=== PATIENT | female | born 1960 | race Caucasian/White ===

== ENCOUNTER 2019-10-07 13:22 | Emergency (ER) | payer OTHER, SELFPAY ==
--- NOTE | 2019-10-07 13:34 | ED.GENADULT ---
HPI - General Adult General Chief complaint: Skin/Abscess/Foreign Body Stated complaint: rash on neck Source: patient and RN notes reviewed Mode of arrival: ambulatory Limitations: no limitations History of Present Illness HPI narrative: This is a 59 years old female presents to the office for an evaluation of itchy lesion on her neck since yesterday. Possible insect bite; however she did not see it. She has try cortisone [id number] with no relief. She did not try to call her doctor for this condition. Denies sick contact or feeling ill. Related Data Home Medications Medication Instructions Recorded Confirmed simvastatin mg 10/07/19 Allergies Allergy/AdvReac Type Severity Reaction Status Date / Time No Known Allergies Allergy Mild Verified 07/04/10 18:51 Review of Systems Review of Systems: Narrative: CONSTITUTIONAL: Denies fever or feeling ill ENT: Denies congestion CARDIOVASCULAR: Denies chest pain RESPIRATORY: Denies cough GASTROINTESTINAL: Denies abdominal pain, nausea, vomiting SKIN: Reports itchy rash/lesion on her left side of her neck/jaw line MUSCULOSKELETAL: Denies acute back pain NEUROLOGIC: Denies lightheaded PMFSH Past Medical History Medical History (Updated 10/07/19 @ 13:49 by RUBI Schwartz) HLD (hyperlipidemia) Social History Social History (Updated 10/07/19 @ 13:55 by RUBI Schwartz) Smoking status: Never smoker Comments At time of signature, I agree with nursing past medical, surgical, social and family history. There is no relevant family history pertinent to the presenting complaint. Exam Narrative: Exam Narrative: GENERAL: This is a well-nourished, well-developed patient, in no apparent distress. THROAT: Mucous membranes moist, posterior pharynx clear. NECK: Neck supple, non-tender without lymphadenopathy, masses or thyromegaly. Left jaw line noted erythema nodule with excoriation scratch cleaning. No Lymphandenitis. CARDIOVASCULAR: Regular rate and rhythm without murmurs, gallops, or rubs. RESPIRATORY: Clear to auscultation. Breath sounds equal bilaterally. No wheezes, rales, or rhonchi. GASTROINTESTINAL: Abdomen soft, non-tender, nondistended. Bowel sounds are active. No hepato-splenomegaly, or palpable masses. No guarding. NEURO: awake, alert, and oriented to person, place and time. There were no obvious focal neurologic abnormalities. Steady gait Davis Coma Scale Eye Opening: Spontaneous 4 Megan Coma Scale Motor: Obeys Commands 6 Davis Coma Scale Verbal: Oriented 5 Course Vital Signs Vital signs: Vital Signs Temperature 98.4 F 10/07/19 13:35 Pulse Rate 84 10/07/19 13:35 Respiratory Rate 16 10/07/19 13:35 Blood Pressure 137/85 10/07/19 13:35 Pulse Oximetry 100 10/07/19 13:35 Temperature 98.4 F 10/07/19 13:35 Pulse Rate 84 10/07/19 13:35 Respiratory Rate 16 10/07/19 13:35 Blood Pressure 137/85 10/07/19 13:35 Pulse Oximetry 100 10/07/19 13:35 Medical Decision Making MDM Narrative Medical decision making narrative: Discharge instructions reviewed with patient, as well as provided in writing per nursing staff. The instructions also include specific and strict return/GO TO THE ER as well as f/u information. All questions have been answered, and the patient deny any further questions with discharge and discharge plan. Differential Diagnosis Differential Diagnosis: Contact/allergic dermatitis, atopic dermatitis, psoriasis, eczema, tinea, erythema multiforme Vital Signs Vital Signs: Vital Signs Temperature 98.4 F 10/07/19 13:35 Pulse Rate 84 10/07/19 13:35 Respiratory Rate 16 10/07/19 13:35 Blood Pressure 137/85 10/07/19 13:35 Pulse Oximetry 100 10/07/19 13:35 Temperature 98.4 F 10/07/19 13:35 Pulse Rate 84 10/07/19 13:35 Respiratory Rate 16 10/07/19 13:35 Blood Pressure 137/85 10/07/19 13:35 Pulse Oximetry 100 10/07/19 13:35 Critical Care Time Critic
[2019-10-07 13:35] VITALS: BP 137/85; PULSE 84; RESP 16; TEMP 36.9; O2SAT 100
== END 2019-10-07 13:56 | disposition home or self-care (01) ==
PROVIDERS: Emergency Provider Nurse Practitioner; PCP Internal Medicine
DX: S10.96XA Insect bite of unspecified part of neck, initial encounter (principal); W57.XXXA Bitten or stung by nonvenomous insect and other nonvenomous arthropods, initial encounter; E78.5 Hyperlipidemia, unspecified
CPT/HCPCS: 99213; G0463

== ENCOUNTER 2019-12-13 09:24 | Emergency (ER) | payer OTHER, SELFPAY ==
[2019-12-13 09:26] VITALS: BP 159/76; PULSE 99; RESP 18; TEMP 36.6; O2SAT 100
[2019-12-13] MEDS: TETANUS,DIPHTHERIA,AC PERTUSSIS ADULT (0.5 ML) BOOSTRIX IM (09:54)
--- NOTE | 2019-12-13 10:16 | ED.HEATRA ---
HPI - Head Injury General Chief complaint: Head Injury Stated complaint: HI Time Seen by Provider: 12/13/19 09:39 History of Present Illness HPI Narrative: Patient is a 59-year-old female who presents the ER with a head injury. She was cleaning at her sister's house when a vase fell and struck the top of her head. It split open the skin. She did not lose consciousness. She has no change in vision or hearing. No extremity numbness or tingling. She takes aspirin. No other concerns. Unknown last tetanus immunization. Related Data Home Medications Medication Instructions Recorded Confirmed simvastatin mg 10/07/19 Allergies Allergy/AdvReac Type Severity Reaction Status Date / Time No Known Allergies Allergy Mild Verified 12/13/19 09:25 Review of Systems Eyes: Eyes: Denies change in vision and Denies photophobia Neurologic: Denies dizziness, Denies syncope, Denies headache(s), Denies focal weakness and Denies numbness PMFSH Past Medical History Medical History (Updated 12/13/19 @ 10:19 by Lee Hernandez MD) HLD (hyperlipidemia) Surgical History Surgical History (Updated 12/13/19 @ 10:17 by Lee Hernandez MD) No pertinent past surgical history Social History Social History (Updated 10/07/19 @ 13:55 by RUBI Schwartz) Smoking status: Never smoker Gender identity (if verbalized by the patient): Female Exam Narrative: Exam Narrative: GENERAL: Well-appearing, well-nourished, and in no acute distress. HEAD: Normocephalic, 2 cm superficial laceration left parietal region. ENT: Mucous membranes moist. EXTREMITIES: Normal range of motion. No edema. NEURO: Alert and oriented x3. PSYCH: Normal mood and affect. Course Course Emergency Course: Tetanus updated. Wound repaired. Discharge home. Vital Signs Vital signs: Vital Signs Temperature 97.8 F 12/13/19 09:26 Pulse Rate 99 12/13/19 09:26 Respiratory Rate 18 12/13/19 09:26 Blood Pressure 159/76 H 12/13/19 09:26 Pulse Oximetry 100 12/13/19 09:26 Temperature 97.8 F 12/13/19 09:26 Pulse Rate 99 12/13/19 09:26 Respiratory Rate 18 12/13/19 09:26 Blood Pressure 159/76 H 12/13/19 09:26 Pulse Oximetry 100 12/13/19 09:26 Procedures Laceration Laceration 1: Date: 12/13/19 Time: 10:00 Site: scalp Size (cm): 2 Description: linear Depth: simple, single layer Local Anesthetic: none Pre-repair: irrigated ====== Skin Level ====== Skin layer closed with: sanna Number of sutures: 2 ====== Subcutaneous Layer ====== ====== Muscle Layer ====== ====== Tendon Layer ====== Discharge Plan Discharge Clinical Impression: Laceration of scalp Patient Disposition: Home, Self-Care Condition: Stable Instructions: Staple Care (ED) Additional Instructions: Return the ER if this is draining from your wound, you lose consciousness, you have additional concerns. You will need your sanna removed in 7 days. You can do this at home or return to the ER with your staple remover. Prescriptions: No Action simvastatin 40 mg tablet RF: 0 Follow-up/Referrals: Comfort,Jefry León MD [Primary Care Provider] - 1 Week
== END 2019-12-13 10:47 | disposition home or self-care (01) ==
PROVIDERS: Emergency Provider Emergency Medicine; PCP Internal Medicine
DX: S01.01XA Laceration without foreign body of scalp, initial encounter (principal); E78.5 Hyperlipidemia, unspecified; W20.8XXA Other cause of strike by thrown, projected or falling object, initial encounter; Z23 Encounter for immunization
CPT/HCPCS: 12001; 90471; 90715; 99283

== ENCOUNTER 2019-12-20 11:34 | Emergency (ER) | payer OTHER, SELFPAY ==
[2019-12-20 11:39] VITALS: BP 134/87; PULSE 91; RESP 18; TEMP 36.9; O2SAT 99
--- NOTE | 2019-12-20 12:09 | ED.GENADULT ---
HPI - General Adult General Chief complaint: Wound/Laceration <Liang Pandey PA-C - Last Filed: 12/20/19 12:14> Stated complaint: Geremias Removed <Liang Pandey PA-C - Last Filed: 12/20/19 12:14> Time Seen by Provider: 12/20/19 11:39 <Liang Pandey PA-C - Last Filed: 12/20/19 12:14> Source: patient <Liang Pandey PA-C - Last Filed: 12/20/19 12:14> Mode of arrival: ambulatory <Liang Pandey PA-C - Last Filed: 12/20/19 12:14> Limitations: no limitations <Liang Pandey PA-C - Last Filed: 12/20/19 12:14> History of Present Illness HPI narrative: Patient is a 59-year-old female who presents to emergency department for evaluation of needing geremias removed from the scalp that were placed 7 days ago patient denies any pain or complaints presents in no distress <Liang Pandey PA-C - Last Filed: 12/20/19 12:14> Related Data Home medications: Home Medications Medication Instructions Recorded Confirmed simvastatin mg 10/07/19 <Liang Pandey PA-C - Last Filed: 12/20/19 12:14> Allergies/adverse reactions: Allergies Allergy/AdvReac Type Severity Reaction Status Date / Time No Known Allergies Allergy Mild Verified 12/20/19 11:42 <Liang Pandey PA-C - Last Filed: 12/20/19 12:14> Review of Systems Review of Systems: All systems reviewed & are unremarkable except as noted in HPI and below <Liang Pandey PA-C - Last Filed: 12/20/19 12:14> [facility] Past Medical History Medical History: Medical History HLD (hyperlipidemia) <Liang Pandey PA-C - Last Filed: 12/20/19 12:14> Surgical History Surgical History: Surgical History No pertinent past surgical history <TIMMY Gonzalez Last Filed: 12/20/19 12:14> Social History Social History: Social History Smoking status: Never smoker Gender identity (if verbalized by the patient): Female <Liang Pandey PA-C - Last Filed: 12/20/19 12:14> Exam Narrative: Exam Narrative: GENERAL: Well-appearing, well-nourished, and in no acute distress. HEAD: Normocephalic, atraumatic. Scalp is well approximated no erythema [address] EYES: PERRLA and EOMI. ENT: Nares clear, no rhinorrhea or epistaxis. Mucous membranes moist. Oropharynx without tonsillar hypertrophy exudate or other lesions. EXTREMITIES: Normal range of motion. No edema. SKIN: Warm, dry, no rash. NEURO: No focal deficits. Alert and oriented x3. PSYCH: Normal mood and affect. <Linag Pandey PA-C - Last Filed: 12/20/19 12:14> Course Course Emergency Course: Patient in the room in no distress aware of case findings treatment plan diagnosis <Liang Pandey PA-C - Last Filed: 12/20/19 12:14> Vital Signs Vital signs: Vital Signs Temperature 98.5 F 12/20/19 11:39 Pulse Rate 91 12/20/19 11:39 Respiratory Rate 18 12/20/19 11:39 Blood Pressure 134/87 12/20/19 11:39 Pulse Oximetry 99 12/20/19 11:39 Temperature 98.5 F 12/20/19 11:39 Pulse Rate 91 12/20/19 11:39 Respiratory Rate 18 12/20/19 11:39 Blood Pressure 134/87 12/20/19 11:39 Pulse Oximetry 99 12/20/19 11:39 <Liang Pandey PA-C - Last Filed: 12/20/19 12:14> Vital Signs Temperature 98.5 F 12/20/19 11:39 Pulse Rate 91 12/20/19 11:39 Respiratory Rate 18 12/20/19 11:39 Blood Pressure 134/87 12/20/19 11:39 Pulse Oximetry 99 12/20/19 11:39 Temperature 98.5 F 12/20/19 11:39 Pulse Rate 91 12/20/19 11:39 Respiratory Rate 18 12/20/19 11:39 Blood Pressure 134/87 06/13/20 11:39 Pulse Oximetry 99 12/20/19 11:39 <Polina Coleman MD - Last Filed: 12/20/19 18:33> Procedures Other Procedure Procedure 1: Other Procedure: 2 geremias removed using staple
== END 2019-12-20 12:21 | disposition home or self-care (01) ==
PROVIDERS: Emergency Provider General Practice; PCP Internal Medicine
DX: S01.00XD Unspecified open wound of scalp, subsequent encounter (principal); E78.5 Hyperlipidemia, unspecified; X58.XXXD Exposure to other specified factors, subsequent encounter
CPT/HCPCS: 99281

== ENCOUNTER 2020-12-06 10:04 | Emergency (ER) | payer OTHER, SELFPAY ==
[2020-12-06 10:11] VITALS: BP 144/86; PULSE 96; RESP 16; TEMP 36.3; O2SAT 100
[2020-12-06 10:14] VITALS: BP 144/86; PULSE 96; RESP 16; TEMP 36.3; O2SAT 100
--- NOTE | 2020-12-06 10:31 | ED.FEMALEGU ---
HPI - Female Genitourinary General Chief complaint: Urogenital-Female Stated complaint: Yeast Infection Source: patient and RN notes reviewed Limitations: no limitations History of Present Illness HPI Narrative: The patient- previously mostly healthy- presents with shorter, couple day history of urinary frequency associated with itching. No fever, dysuria, hematuria, low back pain, N/V , abdominal pain, discharge. Symptoms are mild, unimproved with OTC female preps, and most noticeable at night with associated nocturia. She declines pelvic exam Related Data Home Medications Medication Instructions Recorded Confirmed simvastatin 40 mg PO DAILY 10/07/19 12/06/20 omeprazole 20 mg PO DAILY 12/06/20 12/06/20 Allergies Allergy/AdvReac Type Severity Reaction Status Date / Time No Known Allergies Allergy Mild Verified 12/06/20 10:18 Review of Systems Review of Systems: Narrative: The patient has been informed that they may have pre-hypertension or Hypertension based on a BP reading in the department. I recommend that the patient call the primary care provider listed on their discharge instructions or a physician of their choice this week to arrange follow up for further evaluation of possible pre-hypertension or Hypertension General/Constitutional: No weight loss,fever Eyes: N0: Redness,discharge Ears/Nose/Throat: No: Epistaxis,ear discharge Respiratory: Denies: Hemoptysis Gastrointestinal: No Vomiting, Bleeding-rectal Skin: No Lumps, eruption Neurologic: No Focal Weakness,Sz Hematologic: Denies: Petechiae/Purpura Psychiatric: No: Suicida ideationl All Other Systems: Reviewed and Negative [facility] Past Medical History Medical History (Updated 12/06/20 @ 10:33 by Mark Atkinson MD) HLD (hyperlipidemia) Surgical History Surgical History No pertinent past surgical history Social History Social History Smoking status: Never smoker Gender identity (if verbalized by the patient): Female Comments At time of signature, agree with nursing past medical, surgical, social and family history. There is no relevant family history pertinent to the presenting complaint Exam Narrative: Exam Narrative: General Appearance: Well appearing, No distress EYE: PERRLA, Conjunctiva clear Ears: External ear normal Nose: Normal nose Mouth/Throat: Normal appearing, Normal lips Neck: Supple Respiratory: Airway patent, No respiratory distress Abdomen: Soft, Non-tender, Musculoskeletal: Full ROM Skin: Warm, Dry Neurological: A&O x3, CN II-X intact Psychiatric: Normal mood, Normal affect Course Vital Signs Vital signs: Vital Signs Temperature 97.4 F L 12/06/20 10:11 Pulse Rate 96 12/06/20 10:11 Respiratory Rate 16 12/06/20 10:11 Blood Pressure 144/86 H 12/06/20 10:11 Pulse Oximetry 100 12/06/20 10:11 Temperature 97.4 F L 12/06/20 10:14 Pulse Rate 96 12/06/20 10:14 Respiratory Rate 16 12/06/20 10:14 Blood Pressure 144/86 H 12/06/20 10:14 Pulse Oximetry 100 12/06/20 10:14 MDM - Female Genitourinary Lab Data Labs: Urine Glucose Negative Reference Range: Negative Urine Bilirubin Negative Reference Range: Negative Urine Ketone Negative Reference Range: Negative Urine Specific [place] 1.020 Reference Range:1.001-1.035 Urine Blood Trace Reference Range: Negative * * Urine pH 6.0 Reference Range: 5.0-9.0
== END 2020-12-06 10:39 | disposition home or self-care (01) ==
PROVIDERS: Emergency Provider Emergency Medicine; PCP Internal Medicine
DX: N76.0 Acute vaginitis (principal); E78.5 Hyperlipidemia, unspecified
CPT/HCPCS: 81003; 99213; G0463

== ENCOUNTER 2023-04-23 18:45 | Emergency (ER) | payer OTHER, SELFPAY ==
[2023-04-23 18:55] VITALS: BP 129/70; PULSE 85; RESP 16; TEMP 37.4; O2SAT 99
--- NOTE | 2023-04-23 19:17 | ED.SKABFB ---
HPI - Skin/Abscess/Foreign Bdy General Chief complaint: Skin/Abscess/Foreign Body Stated complaint: rash on left side Source: patient Mode of arrival: ambulatory Limitations: no limitations History of Present Illness HPI narrative: 63-year-old female presents to [facility] with complaints to rash to left-sided buttocks moving up to left-side of abdomen which patient just noticed prior to arrival. Patient reports that she recently returned home from a trip. Patient denies pain to the area of rash. Patient reports that she did try applying [id number] cortisone cream 1 time with no relief. Patient denies shortness of breath, wheezing, trouble swallowing difficulty breathing MD complaint: rash Onset (ago): hour(s) (1) Location: buttocks ( Left-sided) Relieving factors: none Exacerbating factors: none Context: none Associated symptoms: denies other symptoms Treatments prior to arrival: none Related Data Home Medications Medication Instructions Recorded Confirmed simvastatin 40 mg tablet 40 mg PO DAILY 10/07/19 12/06/20 omeprazole 20 mg capsule,delayed 20 mg PO DAILY 12/06/20 12/06/20 release montelukast 10 mg tablet mg 04/23/23 Allergies Allergy/AdvReac Type Severity Reaction Status Date / Time No Known Allergies Allergy Mild Verified 04/23/23 18:53 Review of Systems Constitutional: Constitutional: Denies chills, Denies fatigue, Denies fever(s) and Denies weakness ENT: Denies dizziness, Denies epistaxis and Denies nasal congestion Cardiovascular: Cardiovascular: Denies chest pain Respiratory: Respiratory: Denies cough, Denies dyspnea and Denies wheezing Gastrointestinal: Gastrointestinal: Denies diarrhea, Denies nausea and Denies vomiting Musculoskeletal: Musculoskeletal: Denies arthralgias and Denies joint swelling Integumentary/Breasts: Skin/Breast: Denies pruritus, Denies erythema, Reports rash and Denies skin ulcer Neurologic: Denies dizziness, Denies syncope and Denies headache(s) [facility] Past Medical History Medical History (Updated 04/23/23 @ 19:22 by Matilda Monae APRN) HLD (hyperlipidemia) Surgical History Surgical History No pertinent past surgical history Social History Social History Smoking status: Never smoker Gender identity (if verbalized by the patient): Female Comments At time of signature, I agree with nursing past medical, surgical, social and family history. There is no relevant family history pertinent to the presenting complaint. Exam Const: General: healthy appearing and no acute distress Nutritional Appearance: well nourished Orientation/consciousness: patient oriented x3 Limitations: no limitations Neck: Neck: normal visual inspection Resp: Effort & Inspection: normal respiratory effort and not labored Auscultation: clear to auscultation bilaterally, no crackles, no rales and no rhonchi Cardio: Rate: regular rate Skin: General skin exam: normal color Wounds: no wounds Other: linear erythematous rash noted to left side of buttocks and left abdominal wall representing contact dermatitis. There is no vesicles noted. There is no surrounding erythema, streaking erythema or signs infection noted. Neuro: General: patient oriented x3 Speech: normal speech Psych: Affect: normal affect Attitude: cooperative Course Course Level of Care: Express Care Visit Vital Signs Vital signs: Vital Signs Temperature 37.4 C 04/23/23 18:55 Pulse Rate 85 04/23/23 18:55 Respiratory Rate 16 04/23/23 18:55 Blood Pressure 129/70 04/23/23 18:55 Pulse Oximetry 99 04/23/23 18:55 Oxygen Delivery Room Air 04/23/23 18:55 Temperature 37.4 C 04/23/23 18:55 Pulse Rate 85 04/23/23 18:55 Respiratory Rate 16 04/23/23 18:55 Blood Pressure 129/70 04/23/23 18:55 Pulse Oximetry 99 04/23/23 18:55 Oxygen Delivery Ro
== END 2023-04-23 19:34 | disposition home or self-care (01) ==
PROVIDERS: Emergency Provider Nurse Practitioner Family; PCP Internal Medicine
DX: L25.9 Unspecified contact dermatitis, unspecified cause (principal); E78.5 Hyperlipidemia, unspecified
CPT/HCPCS: 99213; G0463

== ENCOUNTER 2023-06-25 07:07 | Outpatient (CLI) | payer OTHER, SELFPAY ==
--- NOTE | ~2023-06-25 | MM_ITS ---
EXAMINATION: MM screening molly BI w bassam HISTORY: Screening mammogram TECHNIQUE: Craniocaudal and mediolateral oblique 3-D tomosynthesis images were obtained and synthetic 2-D images were generated. CAD analysis was submitted and interpreted. COMPARISON: 05/17/2016 bilateral screening mammogram BREAST PARENCHYMAL COMPOSITION: The breasts are extremely dense, which lowers the sensitivity of mamm ography. FINDINGS: There is no evidence of suspicious mass, calcification, or architectural distortion to sugg est malignancy in either breast. There has been no suspicious interval change. IMPRESSION: 1. No mammographic evidence of malignancy. 2. Recommend routine screening mammography in one year. BI-RADS Category 1: Negative Reviewed, dictated and finalized at location A. T [employer]PERINTENDENT
== END 2023-06-25 07:08 | disposition home or self-care (01) ==
LOC: ANHIMG 07:08
PROVIDERS: PCP Internal Medicine; Visit Provider Internal Medicine
DX: Z12.31 Encounter for screening mammogram for malignant neoplasm of breast (principal)
CPT/HCPCS: 77063; 77067

== ENCOUNTER 2024-08-05 15:03 | Outpatient (CLI) | payer OTHER, SELFPAY ==
--- NOTE | ~2024-08-05 | MM_ITS ---
EXAMINATION: MM screening molly BI w bassam HISTORY: Screening TECHNIQUE: Craniocaudal and mediolateral oblique 3-D tomosynthesis images were obtained and synthetic 2-D images were generated. CAD analysis was submitted and interpreted. COMPARISON: Comparison to multiple prior studies sequentially, with oldest reviewed study dated 03/2016. BREAST PARENCHYMAL COMPOSITION: Dense: The breasts are extremely dense, which lowers the sensitivity of mammography. FINDINGS: There is no evidence of suspicious mass, calcification, or architectural distortion to sugg est malignancy in either breast. There has been no suspicious interval change. IMPRESSION: 1. No mammographic evidence of malignancy. 2. Recommend routine screening mammography in one year. BI-RADS Category 1: Negative Reviewed, dictated and finalized at location A. ONAL [employer] ANALYST
--- OUTSIDE RECORDS SUMMARY | 2024-08-05 15:34 | XMS_ITS | Clinical Summary ---
Author Organization [facility] Address [address] [place] [address]. [place], [place] [id number] [place] [id number] Care Team Providers Care Grappler Name Role Phone Unavailable Primary Care Provider Unavailabl e Social History Tobacco Use Types Packs/Day Years Used Date Smoking Tobacco: Never Assessed Comments Unknown Sex and Gender Information Value Date Recorded Sex Assigned at Not on file Legal Sex Female 5:28 PM CDT Gender Identity Not on file Sexual Orientation Not on file Plan of Treatment Health Maintenance Due Date Last Done Comments Cervical Cancer Screening Pa p Smear (Age 30 to 64) Every 3 Years 1961 Colorectal Cancer Screening Colonoscopy (10 Years) 1961 Annual Physical 1964 Hepatitis C 1979 DTaP, Tdap and Td Vaccines ( 1 - Tdap) 1980 Cervical Cancer Screening Pa p with HPV Testing (Age 30 to 64) Every 5 Years 1991 Cervical Cancer Screening with HPV 1991 Mammogram Screening 2001 Zoster Vaccines (1 of 2) 2011 COVID-19 Vaccine (2023-2 5 season) 2024 Influenza Adult (#1) 2024 RSV Immunization or 60+ Years (1 - 1-dose 75+ series) 2036 Meningococcal B Vaccine Aged Out No l onger eligible based on patient's age to complete this topic Meningococcal Vaccine Aged Out No melissa ginger eligible based on patient's age to complete this topic Pneumococcal Vaccine: Pediat rics (0 to 5 Years) and At-Risk Patients (6 to 64 Years) Aged Out No longer eligible b ased on patient's age to complete this topic RSV Immunizations Under 20 Months Aged Out No longer eligible based on patient's age to complete this topic
--- OUTSIDE RECORDS SUMMARY | 2024-08-05 15:34 | XMS_ITS | Data Portability ---
Author Organization [facility] [place] [facility] Address [address], [place] [address] Care Team Providers Care Valet Name Role Phone CARLEEN CLARK Primary Care Provider [phone] Assessment Encounter Date Assessment Date Assessment LastModified by Organization Details LastModified Time 11/01/2023 11/01/2023 Hyperlipidemia simvastatin check blood work GERD kszl-ykt-lvturuh omeprazole try to de-escalate to Pepcid and see if that controls her symptoms headaches have been stable rhinitis has been doing fine she uses Jaylin over the counter if needed she is agreeable to a Cologuard she is not agreeable to Pap smear she refuses HIV screening follow-up in 6 months [email or web address] Not available 11/01/2023 22:37:53 05/08/2024 05/08/2024 hyperlipidemia simvastatin. Osteoarthritis meloxicam. Sinusitis Z-Matt and fluids. Healthy lifestyle care instructions. Mammogram. CBC CMP lipid for biochemical management of disease processes and medications. Follow up in 6 months [email or web address] Not available 05/12/2024 08:23:41 Plan of Treatment Reminders Order Date Submit Date Provider Last Modified By Organization Details Last Modified Time Details Appointments ANY 15 2024 09:00A Arturo Clark MD Not available Not available Not available Lab lipid panel, serum 2022 023 [facility], [address], [address], [place], [address], 01/23/2023 17:44:43 CMP, serum or plasma 2022 023 [facility], [address], [address], [place], [address], 01/23/2023 17:44:44 noninvasi ve colorecta l cancer DNA + occult blood screening , QL, stool 2023 024 [facility] (Cologuard Orders Only), [address], [place], [address], 11/23/2023 04:23:48 lipid panel, serum 2023 024 [facility], [address], [address], [place], [address], 11/15/2023 13:01:58 CMP, serum or plasma 2023 024 [facility], [address], [address], [place], [address], 11/15/2023 13:01:58 CBC w/ auto diff 2023 024 [facility], [address], [address], [place], [address], 11/15/2023 13:01:58 CBC w/ auto diff 2023 024 [facility], [address], [address], [place], [address], 05/27/2024 09:26:56 CMP, serum or plasma 2023 024 [email or web address], [address], [address], [place], [address], 06/13/2024 11:20:13 lipid panel, serum 2023 024 [facility], [address], [place], [address], 05/27/2024 09:26:56 Referral None recorded. Procedures None recorded. Surgeries None recorded. Imaging MAMMO, screening , digital, bilateral 2023 024 [facility] (Imaging), [address], [place], [address], 08/05/2024 04:23:16 Medication Orders fluconazo le 150 mg tablet 2022 023 [email or web address] [address], [place], [address], 11/01/2023 14:40:[address] 10 mg tablet 2022 023 [email or web address] [address], [place], [address], 11/01/2023 14:53:27 Jaylin Allergy 180 mg tablet 2022 023 [email or web address] [address], [place], [address], 11/01/2023 14:53:29 triamcino lone acetonide 0.1 % topical ointment 2022 023 [email or web address] [address], [place], [address], 11/01/2023 14:40:27 Zithromax Z-Matt 250 mg tablet 2023 024 [email or web address] [address], [place], [address], 11/01/2023 14:40:03 benzonata te 200 mg capsule 2023 024 [email or web address] [address], [place], [address], 11/01/2023 14:40:04 clobetaso l 0.05 % topical cream 2023 024 [email or web address] [address] In [facility], [address], [place], [address], 11/01/2023 14:53:31 Zithromax Z-Matt 250 mg tablet 2023 024 [email or web address] [address] In [facility], [address], [place], [address], 05/08/2024 15:27:26 Patient TargetsNo targets recorded. Patient Instructions Encounter Date Encounter Id Patient Instructions Last Modified By Organization Details Last Modified Time 01/11/2023 [id number] vaginal yeast infection: care instructions [facility] Not available 01/11/2023 12:29:23 seasonal allergies: care instructions [facility] Not available 01/11/2023 12:29:23 05/28/2023 [id number] rash: care instructions [facility] Not available 05/28/2023 15:31:46 05/08/2024 [id number] A healthy lifestyle: care instructions [email or web address] Not available 05/08/2024 15:27:26 Reason for Referral None Reported. Results Created Date Observation Date Name Description Value Unit Range Abnormal Flag Note LastModifiedBy Organization Detail LastModifiedTime 12/15/1912/15/2023 COLOG UARD cologuard result reportable Sample Could Not Be Proces sed n/a The speci men recei ava by the labor atory was not accep table for testi ng. The patie nt will be conta cted to initi ate a new sampl e colle ction . Not Available [facility] (Cologuard Orders Only) [address], [place], [address], 12/15/2023 15:45:40 01/24/20 23 01/23/2023 LIPID PANEL , STAND TIFFANI cholesterol, total 230 mg/dL <200 high Not Available [facility] [address] [place], [address], 01/23/2023 17:44:43 01/24/20 23 01/23/2023 LIPID PANEL , STAND TIFFANI HDL cholesterol 53 mg/dL > or = 50 normal Not Available [address] [address] [place], [address], 01/23/2023 17:44:43 01/24/20 23 01/23/2023 LIPID PANEL , STAND TIFFANI triglyceride s 94 mg/dL <150 normal Not Available [facility] [address] [place], [address], 01/23/2023 17:44:43 01/24/20 23 01/23/2023 LIPID PANEL , STAND TIFFANI LDL-choleste rol 157 mg/dL _(gladis c) high Refer ence range : <100 Juliette able range <100 mg/dL for prima ry preve ntion ; <70 mg/dL for patie nts with CHD or diabe tic patie nts with > or = 2 CHD risk facto rs. LDL-C is now calcu lated using the Callie marcus-Hop kins calcu frankie n, which is a valid ated novel maryana kim r accur acy than the Fried helen equat ion in the estim ation of LDL-C . Callie marcus SS et al. LIDIA. 2013; 310(1 9): 2061- 2068 (http ://ed ucati on.Alicia Palmer [employer]. com/f aq/FA Q164) Not Available [facility] [address] [place], [address], 01/23/2023 17:44:43 01/24/20 23 01/23/2023 LIPID PANEL , STAND TIFFANI chol/HDLC ratio 4.3 (calc ) <5.0 normal Not Available [facility] [address] [address] [place], [address], 01/23/2023 17:44:43 01/24/20 23 01/23/2023 LIPID PANEL , STAND TIFFANI non HDL cholesterol 177 mg/dL _(gladis c) <130 high For patie nts with diabe tye plus 1 major ASCVD risk facto r, treat ing to a non-H DL-C goal of <100 mg/dL (LDL- C of <70 mg/dL ) is consi dered a thera peuti c optio n. Not Available [address] [address] [place], [address], 01/23/2023 17:44:43 01/24/20 23 01/23/2023 COMPR EHENS LISA METAB OLIC PANEL glucose 93 mg/dL 65-99 normal Fasti ng refer ence inter bobby Not Available [address] [address] [place], [address], 01/23/2023 17:44:44 01/24/20 23 01/23/2023 COMPR EHENS LISA METAB OLIC PANEL urea nitrogen (BUN) 14 mg/dL 7-25 normal Not Available [address] [address] [place], [address], 01/23/2023 17:44:44 01/24/20 23 01/23/2023 COMPR EHENS LISA METAB OLIC PANEL creatinine 0.63 mg/dL 0.50-1 .05 normal Not Available [address] [address] [place], [address], 01/23/2023 17:44:44 01/24/20 23 01/23/2023 COMPR EHENS LISA METAB OLIC PANEL eGFR 101 mL/mi n/1.7 3m2 > or = 60 normal The eGFR is based on the CKD-E PI 2020 equat ion. To calcu late the new eGFR from a previ ous Creat inine or Cysta tin C resul t, go to https ://chantell shi.siva kirby.o bobbi/kumar haas s/ kdoqi /gfr% 5Fcal culat or Not Available [address], [address], 01/23/2023 17:44:44 01/24/20 23 01/23/2023 COMPR EHENS LISA METAB OLIC PANEL BUN/creatini ne ratio NOT APPLIC ABLE (calc ) 6-22 Not Available [facility] [address], [address], 01/23/2023 17:44:44 01/24/20 23 01/23/2023 COMPR EHENS LISA METAB OLIC PANEL sodium 138 mmol/ L 135-14 6 normal Not Available [address], [address], 01/23/2023 17:44:44 01/24/20 23 01/23/2023 COMPR EHENS LISA METAB OLIC PANEL potassium 4.4 mmol/ L 3.5-5. 3 normal Not Available [address], [address], 01/23/2023 17:44:44 01/24/20 23 01/23/2023 COMPR EHENS LISA METAB OLIC PANEL chloride 103 mmol/ L 98-110 normal Not Available [address], [address], 01/23/2023 17:44:44 01/24/20 23 01/23/2023 COMPR EHENS LISA METAB OLIC PANEL carbon dioxide 29 mmol/ L 20-32 normal Not Available [address], [address], 01/23/2023 17:44:44 01/24/20 23 01/23/2023 COMPR EHENS LISA METAB OLIC PANEL calcium 9.2 mg/dL 8.6-10 .4 normal Not Available [address], [address], 01/23/2023 17:44:44 01/24/20 23 01/23/2023 COMPR EHENS LISA METAB OLIC PANEL protein, total 7.1 g/dL 6.1-8. 1 normal Not Available [address], [address], 01/23/2023 17:44:44 01/24/20 23 01/23/2023 COMPR EHENS LISA METAB OLIC PANEL albumin 4.2 g/dL 3.6-5. 1 normal Not Available [address] [address] [place], [address], 01/23/2023 17:44:44 01/24/20 23 01/23/2023 COMPR EHENS LISA METAB OLIC PANEL globulin 2.9 g/dL_ (calc ) 1.9-3. 7 normal Not Available [address] [address] [place], [address], 01/23/2023 17:44:44 01/24/20 23 01/23/2023 COMPR EHENS LISA METAB OLIC PANEL albumin/glob ulin ratio 1.4 (calc ) 1.0-2. 5 normal Not Available [address], [address], 01/23/2023 17:44:44 01/24/20 23 01/23/2023 COMPR EHENS LISA METAB OLIC PANEL bilirubin, total 0.5 mg/dL 0.2-1. 2 normal Not Available [address], [address], 01/23/2023 17:44:44 01/24/20 23 01/23/2023 COMPR EHENS LISA METAB OLIC PANEL alkaline phosphatase 63 U/L 37-153 normal Not Available [address] [address] [place], [address], 01/23/2023 17:44:44 01/24/20 23 01/23/2023 COMPR EHENS LISA METAB OLIC PANEL AST 16 U/L 10-35 normal Not Available [address], [address], 01/23/2023 17:44:44 01/24/20 23 01/23/2023 COMPR EHENS LISA METAB OLIC PANEL ALT 14 U/L 6-29 normal Not Available [address], [address], 01/23/2023 17:44:44 11/11/19 24 11/11/2023 COLOG UARD cologuard result reportable No Result Obtain ed n/a There was insuf jeannine nt stool DNA detec jayme to produ ce a valid Colog uard resul t. The patie nt will be conta cted to initi ate a new sampl e colle ction . Not Available [facility] (Cologuard Orders Only) [address], [place], [address], 11/23/2023 04:23:48 03/05/20 24 03/05/2024 COLOG UARD cologuard result reportable Sample Could Not Be Proces sed n/a The speci men was not colle cted accor ding to the provi ded instr uctio ns. The patie nt will be conta cted to initi ate a new sampl e colle ction . Not Available [facility] (Cologuard Orders Only) [address], [place], [address], 03/08/2024 10:35:45 01/18/20 23 01/16/2023 XR, hip, bilat eral No observ ation record ed. [facility] [address] [place], [address], 01/18/2023 16:48:00 01/18/20 23 01/16/2023 XR, lumba r spine No observ ation record ed. [facility] [address] [place], [address], 01/18/2023 16:48:01 06/25/20 23 06/25/2023 MAMMO , scree ruy, bilat eral No observ ation record ed. [facility] [address], [place], [address], 07/04/2023 15:29:32 Result Notes None recorded. Problems Name Problem SNOMED Code Status Onset Date Resolution Date Notes Provider Name and Address Organization Details Recorded Time Hyperchole sterolemia 72783326 Active Not Available [facility] 3 13:20:55 Skin irritation 123586296 Active Not Available [facility] 3 13:20:55 Cervical cancer Papanicola ou smear screening declined 9997096980457 07 Active 2023 Carleen Clark MD Attn: Accounting ,[address] [facility] [facility], [place], [address] , [place] [facility] 4 22:35:24 Screening for malignant neoplasm of colon Active 2023 Carleen Clark MD Attn: Accounting ,[address] [facility], [place], [address] , [place] [facility] 4 22:37:13 HIV screening declined 2715794987859 00 Active 2023 Carleen Clark MD Attn: Accounting ,[address] [facility], [place], [address] , [place] [facility] 4 22:37:17 Allergic rhinitis 92877415 Active 2023 Carleen Clark MD Attn: Accounting ,[address] [facility], [place], [address] , [place] [facility] 4 22:37:18 Headache 78096077 Active 2023 Carleen Clark MD Attn: Accounting ,[address] [place], [address] , [place] [facility] 4 22:37:20 Hyperlipid emia 41672191 Active 2023 Joe Reynolds [place] null, [place] [facility] 4 11:50:05 Sinusitis 44706418 Active 2023 Joe Reynolds [place], [place] [facility] 4 11:50:06 Screening mammograph y Active 2023 Joe [place], [place] [facility] 4 11:50:21 Long-term drug therapy Active 2023 Joe Reynolds [place], [place] [facility] 4 11:50:21 Acute pharyngiti s 842053769 Active Not Available [facility] 3 13:20:55 Acute sinusitis 51701248 Active Not Available [facility] 3 13:20:55 Acute bronchitis 03021908 Active Not Available [facility] 3 13:20:55 Chronic low back pain 238105756 Active Not Available [facility] 3 13:20:55 Problem Notes None recorded. Procedures Surgical History None recorded. Imaging Results Imaging Date Name Status LastModified by Organiz ation Details LastModified Time 01/16/2023 XR, hip, bilateral completed [facility] [address] [place], [address], 01/18/2023 16:48:00 01/16/2023 XR, lumbar spine completed [facility] [address] [place], [address], 01/18/2023 16:48:01 06/25/2023 MAMMO, screening, bilateral completed [address] [facility] [address], [address], 07/04/2023 15:29:32 Procedure Notes None recorded. Medical Equipment None Reported. Allergies No known drug allergies Medications Name Sig Start Date Stop Date Status Note LastModified by Organization Details LastModified Time cyclobenzap rine 10 mg tablet Take 1 tablet 3 times a day by oral route as needed for 30 days. 07/14 completed Not Available Not Available Not Available Tussin DM 10 mg-100 mg/5 mL oral syrup Take 10 mL every 4 hours by oral route as needed for 5 days. 09/22 completed Not Available Not Available Not Available atorvastati n 40 mg tablet TAKE 1 TABLET BY MOUTH EVERY DAY active Not Available Not Available No t Available azithromyci n 250 mg tablet TAKE 2 TABLETS BY MOUTH TODAY, THEN TAKE 1 TABLET DAILY FOR 4 DAYS DIRECTED active Not Available Not Available No t Available Lidocaine Viscous 2 % mucosal solution Take 15 mL every 3 hours by oral route as directed for 5 days. 07/17 completed Not Available Not Available Not Available fluconazole 150 mg tablet TAKE 1 TABLET BY MOUTH EVERY DAY DIRECTED FOR 2 DAYS 10/31 completed Not Available Not Available Not Available benzonatate 200 mg capsule TAKE 1 CAPSULE BY MOUTH THREE TIMES A DAY NEEDED FOR 10 DAYS 10/31 completed Not Available Not Available Not Available Keflex 500 mg capsule Take 1 capsule every 6 hours by oral route after meals for 5 days. 01/18 completed Not Available Not Available Not Available meloxicam 15 mg tablet TAKE 1 TABLET BY MOUTH EVERY DAY 2024 active Not Available Not Available Not Avai lable lidocaine 4 % topical cream Apply 1 applicati on 4 times a day by topical route as needed for 30 days. 2020 active Not Available Not Available Not Avai lable clobetasol 0.05 % topical cream APPLY THIN COAT TO AFFECTED AREA TWICE A DAY active Not Available Not Available No t Available Nexium 40 mg capsule,del ayed release Take 1 capsule every day by oral route before meals for 30 days. 07/14 completed Not Available Not Available Not Available triamcinolo ne acetonide 0.5 % topical ointment 12/04 completed Not Available Not Available Not Available fexofenadin e 180 mg tablet TAKE 1 TABLET BY MOUTH EVERY DAY DIRECTED 10/31 completed Not Available Not Available Not Available sulfamethox azole 800 mg-trimetho prim 160 mg tablet TAKE 1 TABLET EVERY 12 HOURS BY ORAL ROUTE WITH MEALS FOR 5 DAYS. 11/16 completed Not Available Not Available Not Available guaifenesin 100 mg/5 mL oral liquid Take 10 mL every 4 hours by oral route as needed for 7 days. 09/22 completed Not Available Not Available Not Available triamcinolo ne acetonide 0.1 % topical cream APPLY 1 APPLICATI ON TOPICALLY TWICE A DAY FOR 7 DAYS 10/31 completed Not Available Not Available Not Available simvastatin 40 mg tablet TAKE 1 TABLET BY MOUTH EVERY DAY 06/13 completed Not Available Not Available Not Available meloxicam 7.5 mg tablet TAKE 1 TABLET EVERY DAY BY ORAL ROUTE AFTER MEALS FOR 30 DAYS. 07/14 completed Not Available Not Available Not Available Questran 4 gram powder for susp in a packet Take 1 packet every day by oral route as needed for 5 days. 07/15 completed Not Available Not Available Not Available baclofen 10 mg tablet TAKE 1 TABLET BY MOUTH THREE TIMES A DAY NEEDED FOR 30 DAYS 04/05 completed Not Available Not Available Not Available benzonatate 100 mg capsule TAKE 1 CAPSULE BY MOUTH THREE TIMES A DAY NEEDED FOR 10 DAYS 10/02 completed Not Available Not Available Not Available simvastatin 20 mg tablet 02/14 completed Not Available Not Available Not Available triamcinolo ne acetonide 0.1 % topical ointment APPLY THIN COAT TO AFFECTED AREA TWICE A DAY 10/31 completed Not Available Not Available Not Available prednisone 50 mg tablet 12/04 completed Not Available Not Available Not Available gabapentin 300 mg capsule Take 1 capsule 3 times a day by oral route for 30 days. 10/31 completed Not Available Not Available Not Available omeprazole 20 mg capsule,del ayed release TAKE ONE CAPSULE BY MOUTH DAILY BEFORE MEALS FOR 30 DAYS 07/14 completed Not Available Not Available Not Available montelukast 10 mg tablet TAKE 1 TABLET BY MOUTH EVERY DAY DIRECTED 10/31 completed Not Available Not Available Not Available Cheratussin AC 10 mg-100 mg/5 mL oral liquid 04/13 completed Not Available Not Available Not Available methylpredn isolone 4 mg tablets in a dose pack TAKE 6 TABLETS ON DAY 1 DIRECTED ON PACKAGE AND DECREASE BY 1 TAB EACH DAY FOR A TOTAL OF 6 DAYS 01/11 completed Not Available Not Available Not Available amoxicillin 500 mg-potassiu m clavulanate 125 mg tablet TAKE 1 TABLET BY MOUTH EVERY 12 HOURS WITH MEALS FOR 7 DAYS 01/11 completed Not Available Not Available Not Available nitrofurant oin monohydrate /macrocryst als 100 mg capsule TAKE 1 CAPSULE BY MOUTH EVERY 12 HOURS WITH FOOD FOR 5 DAYS 01/27 completed Not Available Not Available Not Available Livalo 1 mg tablet active Not Available Not Available Not Available Fluarix Quad (PF) 60 mcg (15 mcg x 4)/0.5 mL IM syringe 09/03 completed Not Available Not Available Not Available Afluria Quad 60 mcg (15 mcg x 4)/0.5 mL IM suspension 07/15 completed Not Available Not Available Not Available Fluzone Quad 60 mcg (15 mcg x 4)/0.5 mL intramuscul ar susp. 12/04 completed Not Available Not Available Not Available Afluria Qd (36 mos up)(PF)60 mcg (15 mcg x4)/0.5 mL IM syringe ADM 0.5ML IM UTD 01/27 completed Not Available Not Available Not Available Vitals Date Recorded Body height Provider Name an d Address Organization Details Last Updated DateTime 01/11/2023 182.88 cm Kailey Khan MA [facility] 01/11/2023 11:53:23 Date Recorded Body mass index (BMI) Body weight Provider Name and Address Organization Details Last Updated DateTime 01/11/2023 22.6 kg/m2 87450.93 g Kailey Simmons MA [facility] 01/11/2023 11:56:33 Date Recorded Oxygen saturation Oxygen saturation in Arterial blood by Pulse oximetry Provider Name and Address Organization Details Last Updated DateTime 01/11/2023 97 % 97 % Kailey Simmons MA [facility] 01/11/2023 11:59:01 Date Recorded Heart rate Provider Name an d Address Organization Details Last Updated DateTime 01/11/2023 76 /min Kailey Khan MA [facility] 01/11/2023 11:59:04 Date Recorded Body height Provider Name an d Address Organization Details Last Updated DateTime 05/28/2023 182.88 cm Rocio Quintero MA [facility] 05/28/2023 14:59:17 Date Recorded Body mass index (BMI) Body weight Provider Name and Address Organization Details Last Updated DateTime 05/28/2023 23.1 kg/m2 37286.7 g ZAHRA Cuellar [facility] 05/10 14:59:27 Date Recorded Heart rate Provider Name an d Address Organization Details Last Updated DateTime 05/28/2023 76 /min Rocio Quintero MA [facility] 05/28/2023 15:00:50 Date Recorded Oxygen saturation Oxygen saturation in Arterial blood by Pulse oximetry Provider Name and Address Organization Details Last Updated DateTime 05/28/2023 100 % 100 % Rocio Quintero MA [facility] 05/28 15:00:56 Date Recorded Body height Provider Name an d Address Organization Details Last Updated DateTime 08/21/2023 182.88 cm Rocio Quintero MA [facility] 08/21/2023 17:07:34 Date Recorded Body mass index (BMI) Body weight Provider Name and Address Organization Details Last Updated DateTime 08/21/2023 23.2 kg/m2 76989.3 g ZAHRA Cuellar JR 08/09 17:07:45 Date Recorded Heart rate Provider Name an d Address Organization Details Last Updated DateTime 08/21/2023 82 /min Rocio Quintero MA [facility] 08/21/2023 17:09:32 Date Recorded Oxygen saturation Oxygen saturation in Arterial blood by Pulse oximetry Provider Name and Address Organization Details Last Updated DateTime 08/21/2023 97 % 97 % Rocio Quintero MA [facility] 08/21 17:09:40 Date Recorded Body height Provider Name an d Address Organization Details Last Updated DateTime 11/01/2023 182.88 cm Temi Gustafson MA [facility] 10/31 14:53:38 Date Recorded Body mass index (BMI) Body weight Provider Name and Address Organization Details Last Updated DateTime 11/01/2023 23.7 kg/m2 84214.95 g Temi Gustafson MA [facility] 11/01/2023 14:53:44 Date Recorded Heart rate Provider Name an d Address Organization Details Last Updated DateTime 11/01/2023 72 /min Temi Gustafson MA [facility] 10/31 14:56:23 Date Recorded Oxygen saturation Oxygen saturation in Arterial blood by Pulse oximetry Provider Name and Address Organization Details Last Updated DateTime 11/01/2023 98 % 98 % Temi Gustafson MA [facility] 11/01/2023 14:56:25 Date Recorded Body height Provider Name an d Address Organization Details Last Updated DateTime 05/08/2024 182.88 cm Cami Knight MA [facility] 10:39:50 Date Recorded Body mass index (BMI) Body weight Provider Name and Address Organization Details Last Updated DateTime 05/08/2024 23.5 kg/m2 22582.2 g Cami ZAHRA Knight [facility] 10:44:11 Date Recorded Heart rate Provider Name an d Address Organization Details Last Updated DateTime 05/08/2024 77 /min Cami ZAHRA Knight [facility] 10:44:43 Date Recorded Oxygen saturation Oxygen saturation in Arterial blood by Pulse oximetry Provider Name and Address Organization Details Last Updated DateTime 05/08/2024 98 % 98 % Cami ZAHRA Kngiht [facility] 05/08/2024 10:45:43 Date Recorded Systolic blood pressure Diastolic blood pressure Provider Name and Address Organization Details Last Updated DateTime 01/11/2023 132 mm[Hg] 70 mm[Hg] Kailey Simmons MA [facility] 01/11/2023 11:58:49 Date Recorded Systolic blood pressure Diastolic blood pressure Provider Name and Address Organization Details Last Updated DateTime 05/28/2023 126 mm[Hg] 80 mm[Hg] Rocio Quintero MA [facility] 05/10 15:01:07 Date Recorded Systolic blood pressure Diastolic blood pressure Provider Name and Address Organization Details Last Updated DateTime 08/21/2023 126 mm[Hg] 72 mm[Hg] Rocio Quintero MA [facility] 08/09 17:09:57 Date Recorded Systolic blood pressure Diastolic blood pressure Provider Name and Address Organization Details Last Updated DateTime 11/01/2023 122 mm[Hg] 80 mm[Hg] Temi Gustafson MA [facility] 11/01/2023 14:56:21 Date Recorded Systolic blood pressure Diastolic blood pressure Provider Name and Address Organization Details Last Updated DateTime 05/08/2024 120 mm[Hg] 62 mm[Hg] Cami Knight MA [facility] 05/08/2024 10:45:45 Social History Question Answer Notes LastModified by Organizat ion Details LastModified Time Tobacco Smoking Status [facility] 08/19/2014 15:08:14 Do You Have An Advance Directive? No Information not available 08/19/2014 What Is Your Level Of Alcohol Consumption? Occasional Information not available 08/19/2014 Are You Blind Or Do You Have Difficulty Seeing? No Information not available 08/19/2014 What Is Your Level Of Caffeine Consumption? Moderate Information not available 08/19/2014 How Much Tobacco Do You Chew? None Information not available 08/19/2014 In The 14 Days Before Symptom Onset, Have You Had Close Contact With A Laboratory-confir med COVID-19 While That Case Was Ill? No Information not available 05/08/2024 In The 14 Days Before Symptom Onset, Have You Had Close Contact With A Person Who Is Under Investigation For COVID-19 While That Person Was Ill? No Information not available 05/08/2024 Have You Been To An Area Known To Be High Risk For COVID-19? No Information not available 05/08/2024 Are You Currently Employed? Yes Information not available 05/08/2024 Are You Deaf Or Do You Have Serious Difficulty Hearing? No Information not available 08/19/2014 What Type Of Diet Are You Following? 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 No Information not available 08/19/2014 Hard Of Hearing Or Deaf In One Or Both Ears? No Information not available 08/19/2014 Legally Blind In One Or Both Eyes? No Information no t available 08/19/2014 Marital Status Informatio n not available 08/19/2014 What Was The Date Of Your Most Recent Tobacco Screening? 05/08/2024 Information not available 05/08/2024 Performs Monthly Self-breast Exam? Yes Information no t available 08/19/2014 What Is Your Relationship Status? [email or web address] Information not available 11/01/2023 Do You Use Your Seat Belt Or Car Seat Routinely? Yes Information not available 05/08/2024 Seat Belts Used Routinely Yes Information not available 08/19/2014 Smoke Alarm In Home Yes Information not available 08/19/2014 Do You Have Smoke And Carbon Monoxide Detectors In Your Home? Yes Information not available 05/08/2024 How Much Tobacco Do You Smoke? No Information not available 08/19/2014 General Stress Level Medium Information not available 08/19/2014 Do You Use Any Illicit Or Recreational Drugs? No Information not available 05/08/2024 Do You Use Sunscreen Routinely? Yes Information not available 08/19/2014 Has Tobacco Cessation Counseling Been Provided? No Information not available 05/08/2024 Do You Or Have You Ever Used Any Other Forms Of Tobacco Or Nicotine? No Information not available 05/08/2024 Sex: Female Functional Status Question Answer Note LastModified by Organizat ion Details LastModified Time Do you have difficulty walking or climbing stairs? No Information not available 08/19/2014 Do you have difficulty doing errands alone? No Information not available 08/19/2014 Do you have difficulty dressing or bathing? No Information not available 08/19/2014 What is your exercise level? Occasional Information not available 08/19/2014 Mental Status Question Answer Note LastModified by Organization D etails LastModified Time Do you have difficulty concentrating, remembering or making decisions? No Information no t available 08/19/2014 Family History Relationship Description Onset Age of this Age Resolved Age Notes LastModified by Organization Details LastModified Time Mother Heart disease Not available 2014 15:08:14 Father Malignant tumor of prostate Not available 2014 15:08:14 Brother Alcohol abuse Not available 2014 15:08:14 Sister Malignant tumor of breast Not available 2014 15:08:14 Sister Migraine Not availabl e 08/19/2014 15:08:14 Medical History Condition Response Acid Reflux (GERD) Y Headaches Y High Cholesterol N Gynecological HistoryNo gynecological history recorded. Obstetrics History GPAL:G 0 P 0 0 0 0 Immunizations Vaccine Type Date Status Note Provider Nam e and Address Organization Details Recorded Time Influenza, split virus, quadrivalent, preservative 9 completed Not Available [facility] 01/29/2023 02:49:01 tetanus toxoid, unspecified formulation 8 completed Not Available [facility] 01/29/2023 02:49:01 Influenza, split virus, quadrivalent, preservative 6 completed Not Available [facility] 07/26/2019 02:41:31 Influenza, split virus, quadrivalent, PF 0 completed Not Available [facility] 01/29/2023 02:49:01 Influenza, split virus, quadrivalent, PF 1 completed Joe Reynolds MA [facility], [place] [facility] 06/11/2024 09:54:41 Influenza, split virus, quadrivalent, PF 4 completed Not Available [facility] 01/29/2023 02:49:01 Influenza, split virus, quadrivalent, preservative 5 completed Not Available [facility] 07/26/2019 02:32:11 pneumococcal polysaccharide PPV23 5 completed Not Available [facility] 07/26/2019 02:29:54 Past Encounters Encounter ID Performer Location Encounter Start Date Encounter Closed Date Diagnosis/Indication Diagnosis SNOMED-CT Code Diagnosis ICD10 Code Diagnosis Note [id number] [facility] (Adult Med) [address] [place] [address] [phone] 0 08/19/2014 14:43:49 08/20/2014 09:19:26 Hypercholesterolemia 79190081 Skin irritation [id number] MD Gaetano Steel (Adult Med) [address] [place] [address] 73555-158 0 05/12/2015 11:21:28 05/12/2015 13:37:15 Acute pharyngitis 823526876 J02.9 Hypercholesterolemia 136 33976 E78.0 Skin irritation 32358210 7 L30.9 [id number] Daphne Salter (Adult Med) [address] [place] [address] [id number] 0 06/16/2015 09:42:18 06/16/2015 13:16:35 Active or passive immunization 532040202 Z23 [id number] Bernie moore [facility] (Adult Med) [address] [place] [address] 44056-210 0 07/05/2015 10:15:02 07/05/2015 16:31:24 Acute sinusitis 39093061 J01.90 Acute bronchitis 0251592 2 J20.9 [id number] Jefry Moyer MD [facility] (Adult Med) [address] [place] [address] [id number] 0 09/01/2015 15:19:07 09/01/2015 17:23:03 Hypercholesterolemia 30394313 E78.0 Chronic low back pain 27 3574872 M54.5 [id number] Bernie Flores is [facility] (Adult Med) [address] [place] [address] 75576-329 0 04/17/2016 10:00:44 04/17/2016 18:00:12 Hypercholesterolemia 38220066 E78.2 Chronic low back pain 27 4775386 M54.5 Active or passive immunization 033774560 Z23 Screening for malignant neoplasm of cervix 881845779 Z12.4 Screening for malignant neoplasm of colon 504582672 Z12.11 Screening mammography 24 587727 Z12.31 Postmenopausal state 764 15995 Z78.0 [id number] Jefry Moyer MD [facility] (Adult Med) [address] [place] [address] 95914-726 0 02/14/2017 16:09:47 02/15/2017 11:03:36 Acute bronchitis 83406509 J20.9 Hypercholesterolemia 136 10699 E78.2 Job saturated fat diet. She is advised to hold off simvastati n until finishing her Z-matt. [id number] Jefry Moyer MD [facility] (Adult Med) [address] [place] [address] 13024-230 0 09/03/2017 09:38:33 09/03/2017 10:47:56 Acute bronchitis 46298352 J20.9 Dyslipidemia 827580046 E 78.5 Hypercholesterolemia 136 24230 E78.2 Job saturated fat diet. She is advised to hold off simvastati n until finishing her Z-matt. [id number] MD Gaetano Steel (Adult Med) [address] [place] [address] 11421-746 0 07/15/2018 11:51:55 07/16/2018 10:52:53 Acute sinusitis 20635130 J01.90 Hypercholesterolemia 136 52012 E78.2 Job saturated fat diet. She is advised to hold off simvastati n until finishing her Z-matt. [id number] MD Gaetano Steel (Adult Med) [address] [place] [address] [id number] 0 04/14/2019 16:11:59 04/21/2019 10:49:44 Acute bronchitis 93725275 J20.9 Hypercholesterolemia 136 61940 E78.2 Job saturated fat diet. She is advised to hold off simvastati n until finishing her Z-matt. Disorder o f function of stomach 483224546 K31.89 discussed with patient. Gassy stomach. [id number] MD Gaetano Steel (Adult Med) [address] [place] [address] [id number] 0 07/15/2019 16:43:10 07/16/2019 12:05:35 Chronic cough 94847518 R05 Adult [facility] th examination 342643468 Z00.00 [id number] Raj Rogers MD [facility] [address] [place] [address] 15302-924 2 07/21/2019 09:10:21 08/05/2019 13:40:39 Acute sinusitis 23502673 J01.90 Sinusitis 78891568 J32.9 pt doesn't have enough problems to follow further reflux could be an issue she is starting meds Gastroesop hageal reflux disease 439145243 K21.9 [id number] MD Gaetano Steel (Adult Med) [address] [place] [address] 33255-975 0 11/03/2019 15:32:20 11/04/2019 16:25:20 Acute bronchitis 82079527 J20.9 She agreed for the z-matt to try. Spasm of back muscles 20 3047032 M62.830 Wanting muscle relaxant. Hyperlipidemia 37550124 E78.5 Will refill her medication . Hypercholesterolemia 136 82566 E78.2 Job saturated fat diet. She is advised to hold off simvastati n until finishing her Z-matt. [id number] MD Gaetano Steel (Adult Med) [address] [place] [address] 90820-146 0 12/05/2019 10:01:41 12/08/2019 14:13:46 Insect bite - wound 851343334 T14.8XXA Discussed with patient, she is willing to try medication s including antibiotic s and topical cream and keep this office informed. [id number] MD Gaetano Steel (Adult Med) [address] [place] [address] 08596-137 0 01/19/2020 09:46:41 01/21/2020 13:58:22 Dyslipidemia 152170424 E78.5 Low animal fat diet, unsaturate d fat diet.exerc ise, keep the weight down. Bilateral hip joint pain 4047350408 5217777 M25.551 M25.552 Chronic pain for a while, she agreed for the Xray first with optional orthopedic referral. possibler arthritis. Hypercholesterolemia 136 93024 E78.2 Job saturated fat diet. She is advised to hold off simvastati n until finishing her Z-matt. Chronic cough 63188035 R 05 Discussed with patient , she agreed for the empirical treatment with antibiotic s and syrup. [id number] MD Gaetano Steel (Adult Med) [address] [place] [address] 37259-665 0 04/20/2020 08:34:38 04/21/2020 10:51:49 Dyslipidemia 056593069 E78.5 Low animal fat diet, unsaturate d fat diet.exerc ise, keep the weight down. Acid reflux 643890145 K2 1.9 Wants medication for. Acute pharyngitis 234513 003 J02.9 Discussed with patient, she wants try some penicillin s group antibiotic s. Hypercholesterolemia 136 62212 E78.2 Job saturated fat diet. She is advised to hold off simvastati n until finishing her Z-matt. [id number] MD Gaetano Steel (Adult Med) [address] [place] [address] [id number] 0 06/14/2020 10:31:21 06/15/2020 10:50:56 Acute bronchitis 70532671 J20.9 She agreed for the z-matt to try. Declines covid -19 test. [id number] Jefry Moyer MD [facility] (Adult Med) [address] [place] [address] [phone] 0 09/22/2020 08:29:32 09/23/2020 10:37:44 Pain in right hip joint 9596378234 00888 M25.551 She will try the medication s Acute bronchitis 2937919 2 J20.9 She agreed for the z-matt to try. Declines covid -19 test. Chronic low back pain 27 2075768 M54.5 On muscle relaxant. Hypercholesterolemia 136 63678 E78.2 Low unsaturate d fat diet., low animal fat diet. She is advised to hold off simvastati n until finishing her Z-matt. On simvastati n [id number] MD Gaetano Steel (Adult Med) [address] [place] [address] 87595-583 0 01/31/2021 14:15:16 02/07/2021 19:47:27 Acid reflux 293891705 K21.9 Wants medication for. She is wiling to pay for by herself as long as it works. Chronic low back pain 27 8280546 M54.5 On muscle relaxant. Hypercholesterolemia 136 38535 E78.2 Low unsaturate d fat diet., low animal fat diet. She is advised to hold off simvastati n until finishing her Z-matt. On simvastati n [id number] MD Gaetano Steel (Adult Med) [address] [place] [address] 25560-593 0 04/07/2021 15:05:34 04/08/2021 08:26:33 Urinary tract infectious disease 06455268 N39.0 Wants some ABX,. Chronic low back pain 27 1582436 M54.5 On muscle relaxant. Hypercholesterolemia 136 61638 E78.2 Low unsaturate d fat diet., low animal fat diet. She is advised to hold off simvastati n until finishing her Z-matt. 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 She has brace for the back.ROM is near normal steady tip-toe and heels gaits, negative for the SLRT in supine. [id number] MD Gaetano Steel (Adult Med) [address] [place] [address] 69031-228 0 04/05/2022 14:29:53 04/06/2022 12:28:34 Allergic rhinitis 37439405 J30.9 wants to refill methyl prednisolo n. Eczema 42634836 L30.9 Discussed with patient. She agreed to try med as ordered. She will let this office know if the rashes are gone. [id number] MD Gaetano Steel (Adult Med) [address] [place] [address] 54135-660 0 10/02/2022 16:23:25 10/03/2022 14:07:47 Allergic bronchitis 561789469 J45.909 Wants medrol dose package. Mammogram declined 79472 5004 Z53.20 She declined today . Cervical c ancer Papanicolaou smear screening declined 2796640515 71518 Z53.20 She declined. today 10-02-22. Colon canc er screening declined 6128717328 9109 Z53.20 She declined today 10-02-22. [id number] MD Gaetano Steel (Adult Med) [address] [place] [address] 33773-019 0 01/11/2023 11:39:40 01/15/2023 14:49:30 Chronic low back pain 919177847 M54.50 Will x ray . she agreed. Bilateral hip joint pain 9064578863 3299733 M25.551 M25.552 Chronic pain for a while, she agreed for the X ray first with optional orthopedic referral. possible arthritis. Dyslipidemia 338725106 E 78.5 Low animal fat diet, unsaturate d fat diet.exerc ise, keep the weight down. Seasonal a llergic rhinitis 877816552 J30.2 She agreed for the med to try as ordered. Candidiasis of vagina 72 227669 B37.31 Med refill. Mammogram declined 99096 5004 Z53.20 She declined today 23. Cervical c ancer Papanicolaou smear screening declined 8192589592 60007 Z53.20 She declined. today 10-02-22. and 01-11-23. Colon canc er screening declined 3214292988 9109 Z53.20 She declined today 10-02-22. and 01-11-23. HIV screen ing declined 5270430463 82273 Z53.20 She declined 01-11-23. [id number] Jefry Moyer MD [facility] (Adult Med) [address] [place] [address] 39857-677 0 05/28/2023 14:38:17 05/29/2023 16:49:03 Eruption 586146675 R21 Will refill med. [id number] Jefry Moyer MD [facility] (Adult Med) [address] [place] [address] 11803-188 0 08/21/2023 16:25:21 08/23/2023 13:26:47 Acute bacterial sinusitis 02567884 J01.90 sinus congestion , with purulent discharge, wants ABT. and benzonatat e Localized eruption of skin 762488108 R21 1 % triamcinol on not working. she refused for biopsy or surgical interventi on, wants to try stronger topical cream first. today 08-21-23. [id number] Carleen Clark MD [facility] [address] [place] [address] 11/01/2023 14:35:06 11/01/2023 15:34:15 Hypercholesterolemia 36578264 E78.2 Screening for malignant neoplasm of colon 386915473 Z12.11 Cervical c ancer Papanicolaou smear screening declined 3949298236 88194 Z53.20 HIV screen ing declined 6300088826 38324 Z53.20 Allergic rhinitis 129597 04 J30.9 Headache 80953638 R51.9 [id number] Carleen Clark MD [facility] [address] [place] [address] 05/08/2024 10:36:06 05/08/2024 11:52:21 Body mass index 20-24 - normal 707572387 Z68.23 Hyperlipidemia 84236744 E78.5 Sinusitis 11205228 J32.9 Screening mammography 24 705477 Z12.31 Long-term drug therapy 525627209 Z79.891 Health Concerns Section Related Observation LastModified by Organization Detai ls LastModified Time None Recorded Concern Status LastModified by Organization Details LastModified Time None Recorded Advance Directives Directive N: Payers Encounter Date Sequence Insurance Name Policy Number Policy Andrews Covered Member ID Andrews Member ID Guarantor Name 01/11/2023 1 [facility] ON OR AFTER 01/06/21 (MEDICAID REPLACEMENT - HMO) Tosha Yap [id number] Tosha Fracisco 05/28/2023 1 [facility] ON OR AFTER 01/06/21 (MEDICAID REPLACEMENT - HMO) Tosha Yap [id number] Tosha Fracisco 08/21/2023 1 [facility] ON OR AFTER 01/06/21 (MEDICAID REPLACEMENT - HMO) Tosha Fracisco [id number] Tosha Fracisco 11/01/2023 1 [facility] ON OR AFTER 01/06/21 (MEDICAID REPLACEMENT - HMO) Tosha Dreronna [id number] Belvue Drees 05/08/2024 1 [facility] ON OR AFTER 01/06/21 (MEDICAID REPLACEMENT - HMO) Tosha Yap [id number] Tosha Yap Notes Date Note Type Note Provider Name and Address Organization Details Recorded Time 01/11/2023 text/html Office visit, NK DA., history of allergic rinitis and sinusitis. work as a house keeper. chronic lower back pain and hipa pin. also familily history of coronary disease, but she wants to think about the stress test. Jefry Moyer MD Attn: Accounting, [address] [facility], [place], [place], [address] [place] [address], [place] [facility] 01/11/2023 14:25:37 05/28/2023 text/html Office visit, JAYASHREE WU. skin rash , wants topical cream refill. No chest pain, no fever, No difficulty of breathing,. Occupational Health And Safety Adviser other complaints. ROS as noted in HPI. Jefry Moyer MD Attn: Accounting, [address] [facility], [place], [place], [address] [place] [address], [place] [facility] 05/28/2023 15:37:15 08/21/2023 text/html Office visit, JAYASHREE WU, not a smoker, C/C 1, Sinus congestion with discharge, 2. Triamcinolon 0.1 % cream is not working on her left arm rash. No other complaints. ROS as noted in HPI. Jefry Moyer MD Attn: Accounting, 1 [facility], [place], [place], [address] [place] [address], [place] [facility] 08/21/2023 18:15:51 11/01/2023 text/html 63-year-old with GERD headache hyperlipidemia chronic rhinitis following up for her medical care overall she says that she is feeling fine Carleen Clark MD Attn: Accounting, 1 [place], [place], [address] [place] [address], [place] [facility] 11/01/2023 22:38:11 05/08/2024 text/html 1. Osteoarthriti s seems to be doing well on the meloxicam no side effects. 2. Dyslipidemia trying to follow a diet could walk a little bit more and she is taking the simvastatin. 3. She is having problems with thick yellow sinus drainage for about 10 days with pressure feeling in sinuses Carleen Clark MD Attn: Accounting, [address] [facility], [place], [place], [address] [place] [address], [place] [facility] 05/12/2024 08:23:59 OBGyn Episode No OBEpisode recorded.
== END 2024-08-05 15:04 | disposition home or self-care (01) ==
LOC: ANHIMG 15:05
PROVIDERS: PCP Internal Medicine; Visit Provider Internal Medicine
DX: Z12.31 Encounter for screening mammogram for malignant neoplasm of breast (principal)
CPT/HCPCS: 77063; 77067